=== PATIENT | female | born 1985 | race Caucasian/White ===

== ENCOUNTER 2016-08-28 19:01 | Emergency (ER) | payer OTHER ==
--- NOTE | 2016-08-28 21:32 | ED NURSING NOTES ---
Clinical Report - Nurses [place] [address] [place] [address] 08/28/2016 19:02 [id number] TRI[facility] Triage time 19:04. Acuity: LEVEL 3. Chief Complaint: DIZZINESS and WEAKNESS. Alert. DOUGIE COMA SCORE: [place] Coma Scale: 15- eyes open spontaneously (4); best verbal response- oriented x 4 (5); best motor response- obeys commands (6). --19:10 TonyaB, R.N. 19:04 08/28/16. BP: 111/84. HR: 75. RR: 16. O2 saturation: 100%. Temp: 98.7 F. Pain level now 4/10. --19:10 TonyaB, R.N. Weight: 52.6 kg. Height/Length: 63 inches. BMI: 20.5. --19:09 TonyaB, R.N. Medications Adderall. --19:06 TonyaB, R.N. Adderall Oral. --19:06 TonyaB, R.N. FLUoxetine HCl Oral. --19:06 TonyaB, R.N. Allergies No Known Drug Allergy. --19:06 TonyaB, R.N. History Arrived by EMS. Historian: patient. ( pt states she was having dizziness, and tingling of the hands, pt states she "passed" out.). This started just prior to arrival. She has had weakness. Treatment STOCK CHECKER: None. See EMS report. PAST MEDICAL HX: Immunizations: up-to-date. Last normal menstrual period- pt on depo. SOCIAL HX: Current every day smoker. Regular alcohol use. History of drug use: marijuana. No infectious disease exposure. SELF HARM ASSESSMENT: A self harm assessment was performed. The patient answered "no" to the question "Have you recently felt down, depressed, or hopeless?", "Have you noticed less interest or pleasure in doing things?", "Do you have thoughts of harming or killing yourself?", "Are you here because you tried to hurt yourself?", "Have you ever tried to hurt yourself before today?", "Have you recently had thoughts about harming or killing others?" and "Do you have any dangerous items in your possession?". FALL RISK ASSESSMENT: Fall risk assessment completed. No fall risk identified. NUTRITIONAL RISK ASSESSMENT: The nutritional risk assessment revealed no deficiencies. FUNCTIONAL ASSESSMENT: Functional assessment: no impairments noted. LEARNING NEEDS ASSESSMENT: The learning needs assessment revealed no barriers. SKIN INTEGRITY ASSESSMENT: Skin integrity risk assessment completed. No skin integrity risk identified. --19:10 Muriel Mckeon PROBLEMS: Anxiety Reaction. --19:07 Betsey Mckeon. ADDITIONAL SURGERIES: Cholecystectomy. --19: Betsey Mckeon. Interventions ID band on patient. --19:10 Muriel Mckeon PHYSICAL ASSESSMENT To room via stretcher. GENERAL / NEURO / PSYCH: Oriented X 4. Appears in no acute distress. Alert. Speech within normal limits. HEENT: No facial asymmetry noted. Pupils equal, round and reactive to light. RESPIRATORY: Breath sounds within normal limits. Respirations not labored. CVS: Normal sinus rhythm noted. Capillary refill less than 2 seconds. GI / : Abdomen soft and nontender. SKIN: Skin is warm. --19:10 Muriel Mckeon NURSING PROGRESS NOTES EKG time: (1954 PM). EKG was ordered, performed by a tech and shown to the ED physician. --19:57 Bessie Montelongo ( sandwich and juice given to pt). --20:04 Muriel Mckeon DISPOSITION / DISCHARGE Departure time: 21:40. Condition at departure: improved. No learning barriers present. Discharge instructions provided and reviewed with the patient. Patient verbalized understanding. Written instructions provided in [place]ijani. The patient was discharged by the physician. She was discharged home and accompanied by ethnology teacher. She left the Emergency Department ambulatory and via private vehicle. Music Typographer driving. FALL RISK ASSESSMENT: Fall risk assessment completed. No fall risk identified. --21:40 Muriel Mckeon 21:39 08/28/16. BP: 112/68. HR: 68. RR: 16. O2 saturation: 99%. Temp: 98.6 F. Pain level now 0/10. --21:40 Muriel Mckeon Locked/Released at 08/29/2016 3:01 by Alen Donaldson R.N.
--- NOTE | 2016-08-28 21:32 | ED ORDER SUMMARY ---
..... Patient: JUAREZ MAURICIO OrderSheet [facility] VisitID: [id number] [place] [address] 30y, F Registration Date/Time: 08/28/2016 ORDER SHEET Weight: 52.6 kg Allergies: No Known Drug Allergy GENERAL ORDERS: EKG - ER Stat (19:36 08/28/2016 TBowen R.N. per protocol) (19:36 TBowen R.N.) CBC w Diff Urgent (19:46 08/28/2016 SThom A.R.N.P.) (Ack 19:48 CHagerty ER Narcotics And/Or Vice Detective) (20:14 TBowen R.N.) CMP Urgent (19:46 08/28/2016 SThom A.R.N.P.) (Ack 19:48 CHagerty ER Narcotics And/Or Vice Detective) (20:14 TBowen R.N.) Urine Urgent (19:46 08/28/2016 SThom A.R.N.P.) (Ack 19:48 CHagerty ER Narcotics And/Or Vice Detective) (20:46 TBowen R.N.) UA-Culture if indicated Urgent (19:46 08/28/2016 SThom A.R.N.P.) (Ack 19:48 CHagerty ER Narcotics And/Or Vice Detective) (20:46 TBowen R.N.) MEDICATION ORDERS: IV FLUIDS: ORDER SHEET NOTES: [Electronically signed by Sunshine CabralesR.N.P. (22:29 08/28/2016)] [Electronically signed by Alen Donaldson R.N. (03:01 08/29/2016)] [Electronically locked/signed by Alen Donaldson R.N. (03:01 08/29/2016)]
--- NOTE | 2016-08-28 21:32 | ED NURSING NOTES ---
Clinical Report - Nurses [place] [address] [place] [address] 08/28/2016 19:02 [id number] TRI[facility] Triage time 19:04. Acuity: LEVEL 3. Chief Complaint: DIZZINESS and WEAKNESS. Alert. DOUGIE COMA SCORE: [place] Coma Scale: 15- eyes open spontaneously (4); best verbal response- oriented x 4 (5); best motor response- obeys commands (6). --19:10 TonyaB, R.N. 19:04 08/28/16. BP: 111/84. HR: 75. RR: 16. O2 saturation: 100%. Temp: 98.7 F. Pain level now 4/10. --19:10 TonyaB, R.N. Weight: 52.6 kg. Height/Length: 63 inches. BMI: 20.5. --19:09 TonyaB, R.N. Medications Adderall. --19:06 TonyaB, R.N. Adderall Oral. --19:06 TonyaB, R.N. FLUoxetine HCl Oral. --19:06 TonyaB, R.N. Allergies No Known Drug Allergy. --19:06 TonyaB, R.N. History Arrived by EMS. Historian: patient. ( pt states she was having dizziness, and tingling of the hands, pt states she "passed" out.). This started just prior to arrival. She has had weakness. Treatment INTERACTIVE ACCOUNT MANAGER: None. See EMS report. PAST MEDICAL HX: Immunizations: up-to-date. Last normal menstrual period- pt on depo. SOCIAL HX: Current every day smoker. Regular alcohol use. History of drug use: marijuana. No infectious disease exposure. SELF HARM ASSESSMENT: A self harm assessment was performed. The patient answered "no" to the question "Have you recently felt down, depressed, or hopeless?", "Have you noticed less interest or pleasure in doing things?", "Do you have thoughts of harming or killing yourself?", "Are you here because you tried to hurt yourself?", "Have you ever tried to hurt yourself before today?", "Have you recently had thoughts about harming or killing others?" and "Do you have any dangerous items in your possession?". FALL RISK ASSESSMENT: Fall risk assessment completed. No fall risk identified. NUTRITIONAL RISK ASSESSMENT: The nutritional risk assessment revealed no deficiencies. FUNCTIONAL ASSESSMENT: Functional assessment: no impairments noted. LEARNING NEEDS ASSESSMENT: The learning needs assessment revealed no barriers. SKIN INTEGRITY ASSESSMENT: Skin integrity risk assessment completed. No skin integrity risk identified. --19:10 Muriel Mckeon PROBLEMS: Anxiety Reaction. --19:07 Betsey Mckeon. ADDITIONAL SURGERIES: Cholecystectomy. --19: Betsey Mckeon. Interventions ID band on patient. --19:10 Muriel Mckeon PHYSICAL ASSESSMENT To room via stretcher. GENERAL / NEURO / PSYCH: Oriented X 4. Appears in no acute distress. Alert. Speech within normal limits. HEENT: No facial asymmetry noted. Pupils equal, round and reactive to light. RESPIRATORY: Breath sounds within normal limits. Respirations not labored. CVS: Normal sinus rhythm noted. Capillary refill less than 2 seconds. GI / : Abdomen soft and nontender. SKIN: Skin is warm. --19:10 Muriel Mckeon NURSING PROGRESS NOTES EKG time: (1954 PM). EKG was ordered, performed by a tech and shown to the ED physician. --19:57 Bessie Montelongo ( sandwich and juice given to pt). --20:04 Muriel Mckeon DISPOSITION / DISCHARGE Departure time: 21:40. Condition at departure: improved. No learning barriers present. Discharge instructions provided and reviewed with the patient. Patient verbalized understanding. Written instructions provided in [place]. The patient was discharged by the physician. She was discharged home and accompanied by interlacer. She left the Emergency Department ambulatory and via private vehicle. Core Mounter driving. FALL RISK ASSESSMENT: Fall risk assessment completed. No fall risk identified. --21:40 Muriel Mckeon 21:39 08/28/16. BP: 112/68. HR: 68. RR: 16. O2 saturation: 99%. Temp: 98.6 F. Pain level now 0/10. --21:40 Muriel Mckeon Locked/Released at 08/29/2016 3:01 by Alen Donaldson R.N.
--- NOTE | 2016-08-28 21:32 | ED CLINICAL REPORT ---
Clinical Report - Physicians/Mid Levels [facility] [address] [place] [address] 08/28/2016 19:02 Patient: JUAREZ MAURICIO Time Seen: 19:42. Arrived- By ambulance. Historian- patient and EMS personnel. HISTORY OF PRESENT ILLNESS Chief Complaint: DIZZINESS. Described as feeling light-headed and weak all over. This started just prior to arrival. No nausea or vomiting. Similar symptoms previously: None. Recent medical care: Not recently seen/assessed. REVIEW OF SYSTEMS No double vision. She has had weakness, and numbness. PAST HISTORY See nurses notes. ( Anxiety hx. Was out drinking last night. Spent the day in bed feeling "off". Episode occurred at restaurant). Surgeries: Cholecystectomy. ADDITIONAL NOTES The nursing notes have been reviewed. PHYSICAL EXAM Vital Signs: 08/28/2016 21:39 BP: 112/68. HR: 68. RR: 16. O2 saturation: 99%. Temp: 98.6 F. Have been reviewed and appear to be correct. Appearance: Alert. No acute distress. Eyes: Pupils equal, round and reactive to light. Extraocular movements normal. ENT: Normal ENT inspection. Moist mucous membranes. Neck: Normal inspection. Neck supple. No meningeal signs. CVS: Normal heart rate and rhythm. Respiratory: No respiratory distress. Back: Normal inspection. Skin: Skin warm and dry. Normal skin color. Normal skin turgor. Extremities: Extremities exhibit normal ROM. Neuro: Alert. Oriented X 3. Mood/affect normal. Speech normal. Cranial nerves normal (as tested). No cerebellar findings. No motor deficit. LABS, X-RAYS, AND EKG EKG: No acute process. Normal EKG. Normal sinus rhythm. Rate: 52. Bradycardia. Normal EKG. (rev w/ Dr Galvez, ERMD). Laboratory Tests: Laboratory tests have been ordered, with results reviewed and considered in the medical decision making process. UA-Culture if indicated: (ENRIQUE: 08/28/2016 20:40) ( MsgRcvd 08/28/2016 21:50) Final results Test Result Flag Units (Reference) URINE COLOR YELLOW URINE APPEARANCE CLEAR URINE GLUCOSE NEGATIVE (NEGATIVE) URINE BILIRUBIN NEGATIVE (NEGATIVE) URINE KETONE NEGATIVE (NEGATIVE) URINE SPECIFIC GRAVITY 1.015 (1.010-1.030) URINE PH 7.5 (5.0-8.0) URINE PROTEIN TRACE (NEGATIVE) URINE UROBILINOGEN 0.2 EU/dL (0.2-1.0) URINE NITRITE NEGATIVE (NEGATIVE) URINE BLOOD NEGATIVE (NEGATIVE) URINE LEUK ESTERASE NEGATIVE (NEGATIVE) URINE RBC NONE SEEN rbc/hpf (0-1) URINE WBC 1-3 wbc/hpf (0-1) URINE EPITHELIAL CELLS 0-1 EPI/hpf (0-5) URINE BACTERIA NONE SEEN (NONE SEEN) URINE COMMENT CULT NOT INDICATED TRACE MUCUSURINE CULTURES ARE SET-UP BASED ON THE FOLLOWING CRITERIA:POSITIVE NITRITEPOSITIVE LEUKOCYTE ESTERASEGREATER THAN 10 WHITE BLOOD CELLSMODERATE (2+) OR GREATER BACTERIA Urine: (ENRIQUE: 08/28/2016 20:40) ( [facility] 08/28/2016 21:32) Final results Test Result Flag Units (Reference) URINE NEGATIVE CBC w Diff: (ENRIQUE: 08/28/2016 20:10) ( [facility] 08/28/2016 20:45) Final results Test Result Flag Units (Reference) WHITE BLOOD COUNT 12.0 H K/uL (4.5-11.5) RED BLOOD COUNT 4.45 M/uL (4.00-5.20) HEMOGLOBIN 14.0 gm/dL (12.0-16.0) HEMATOCRIT 41.2 % (36.0-46.0) MEAN CELL VOLUME 93 fL (80-100) MEAN CORPUSCULAR HGB 31 pg (26-34) MEAN CORPUSCULAR HGB CONC 34 g/dL (31-37) RED CELL DISTRIBUTION WIDTH 12.8 % (11.6-14.8) PLATELET COUNT 259 K/uL (150-400) NEUTROPHIL % 73.4 % (50-75) LYMPH % 18.8 L % (25-40) MONO % 6.9 % (3-14) EOSINOPHIL % 0.4 % (0-4) BASOPHIL % 0.5 % (0-2) CMP: (ENRIQUE: 08/28/2016 20:10) ( MsgRcvd 08/28/2016 20:47) Final results Test Result Flag Units (Reference) GLUCOSE 93 mg/dL (70-110) BUN 10 mg/dL (7-18) CREATININE 0.7 mg/dL (0.6-1.3) Estimated GFR >60 mL/min Estimated GFR- >60 mL/min Note: Persistent reduction over 3 months in eGFR<60 mL/min/1.73 m2 defines CKD. Patients with eGFR values>=60 mL/min/1.73 m2 may also have CKD if evidence ofpersistent proteinuria. Additional information may be foundat www.kidney.org. SODIUM 140 mmol/L (136-145) POTASSIUM 3.5 mmol/L (3.5-5.1) CHLORIDE 103 mmol/L (98-107) CARBON DIOXIDE 28 mmol/L (21-32) CALCIUM 8.5 mg/dL (8.5-10.1) TOTAL PROTEIN 7.3 g/dL (6.4-8.2) ALBUMIN 4.1 g/dL (3.3-5.0) BILIRUBIN, TOTAL 0.3 mg/dL (0.0-1.0) ALKALINE PHOSPHATASE 53 U/L (46-116) AST (SGOT) 22 U/L (15-37) ALT (SGPT) 37 U/L (12-78) . PROGRESS AND PROCEDURES Course of Care: No evidence of infection. Neuro exam normal, VSS, minimal elev WBC more c/w (resolving) volue depletion Pt desires to go home Drank gatorade and took sandwich with further improvement. Patient is stable. The patient's symptoms are now gone. Physical exam findings are improved. Patient counseled in person regarding the patient's condition, test results, diagnosis and need for follow-up. Disposition: Discharged. Condition: stable. CLINICAL IMPRESSION Syncope. Mild volume depletion. INSTRUCTIONS Drink plenty of fluids. No alcohol today. (Will call if any action needed on urine.). Warnings: GENERAL WARNINGS: Return or contact your physician immediately if your condition worsens or changes unexpectedly, if not improving as expected, or if other problems arise. Follow-up: Follow up with your doctor as needed. Understanding of the discharge instructions verbalized by patient. (Electronically signed by Sunshine Cabrales A.R.N.P. 08/28/2016 22:29)
--- NOTE | 2016-08-28 21:32 | ED ORDER SUMMARY ---
..... Patient: JUAREZ MAURICIO OrderSheet [facility] VisitID: [id number] [place] [address] 30y, F Registration Date/Time: 08/28/2016 ORDER SHEET Weight: 52.6 kg Allergies: No Known Drug Allergy GENERAL ORDERS: EKG - ER Stat (19:36 08/28/2016 TBowen R.N. per protocol) (19:36 TBowen R.N.) CBC w Diff Urgent (19:46 08/28/2016 SThom A.R.N.P.) (Ack 19:48 CHagerty ER Paper Sealer) (20:14 TBowen R.N.) CMP Urgent (19:46 08/28/2016 SThom A.R.N.P.) (Ack 19:48 CHagerty ER Paper Sealer) (20:14 TBowen R.N.) Urine Urgent (19:46 08/28/2016 SThom A.R.N.P.) (Ack 19:48 CHagerty ER Paper Sealer) (20:46 TBowen R.N.) UA-Culture if indicated Urgent (19:46 08/28/2016 SThom A.R.N.P.) (Ack 19:48 CHagerty ER Paper Sealer) (20:46 TBowen R.N.) MEDICATION ORDERS: IV FLUIDS: ORDER SHEET NOTES: [Electronically signed by Sunshine CabralesR.N.P. (22:29 08/28/2016)] [Electronically signed by Alen Donaldson R.N. (03:01 08/29/2016)] [Electronically locked/signed by Alen Donaldson R.N. (03:01 08/29/2016)]
--- NOTE | 2016-08-29 03:02 | ED MED RECONCILIATION SUMMARY ---
Patient: JUAREZ MAURICIO Medication Reconciliation Report [facility] VisitID: [id number] [address] [place] [address] 30y, F Registration Date/Time: 08/28/2016 Weight: 52.6 kg Height/Length: 63 in. BMI: 20.5 ALLERGIES: No Known Drug Allergy The patient's Home Medications are listed below: THE FOLLOWING MEDICATIONS NEED TO BE RECONCILED: Adderall Adderall Oral FLUoxetine HCl Oral The source(s) of the original Home Medication information: Not obtained. The following Medications were given to the patient in the Emergency Department: None. The following Medications were prescribed to the patient: None.
--- NOTE | 2016-08-29 03:02 | ED MED RECONCILIATION SUMMARY ---
Patient: JUAREZ MAURICIO Medication Reconciliation Report [facility] VisitID: [id number] [address] [place] [address] 30y, F Registration Date/Time: 08/28/2016 Weight: 52.6 kg Height/Length: 63 in. BMI: 20.5 ALLERGIES: No Known Drug Allergy The patient's Home Medications are listed below: THE FOLLOWING MEDICATIONS NEED TO BE RECONCILED: Adderall Adderall Oral FLUoxetine HCl Oral The source(s) of the original Home Medication information: Not obtained. The following Medications were given to the patient in the Emergency Department: None. The following Medications were prescribed to the patient: None.
--- NOTE | 2016-08-29 03:02 | ED MAR SUMMARY ---
..... Medication Administration Record [facility] [address] [place], [place] [id number] Patient: JUAREZ MAURICIO Visit ID: [id number] 30y, F Weight: 52.6 kg Height/Length: 63 in BMI: 20.5 ALLERGIES: No Known Drug Allergy
--- NOTE | 2016-08-29 03:02 | ED MAR SUMMARY ---
..... Medication Administration Record [facility] [address] [place], [place] [id number] Patient: JUAREZ MAURICIO Visit ID: [id number] 30y, F Weight: 52.6 kg Height/Length: 63 in BMI: 20.5 ALLERGIES: No Known Drug Allergy
--- NOTE | 2016-08-29 03:02 | ED DISCHARGE INSTRUCTIONS ---
Patient: JUAREZ MAURICIO General Instructions [facility] VisitID: [id number] [place] [address] 30y, F Registration Date/Time: 08/28/2016 Syncope. Mild volume depletion. INSTRUCTIONS Drink plenty of fluids. No alcohol today. (Will call if any action needed on urine.). Warnings: GENERAL WARNINGS: Return or contact your physician immediately if your condition worsens or changes unexpectedly, if not improving as expected, or if other problems arise. Follow-up: Follow up with your doctor as needed. Understanding of the discharge instructions verbalized by patient. ADDITIONAL INFORMATION Fainting:Uncertain Cause Fainting (syncope) is a temporary loss of consciousness ("passing out"). It occurs when blood flow to the brain is reduced. Near-fainting ("near-syncope") is very similar to fainting, but you do not fully "pass out". The common minor causes of fainting include: sudden fear, pain, nausea, emotional stress and overexertion. Suddenly standing up after sitting or lying for a long time can also cause fainting. The more serious causes for fainting are due to either a very slow or very fast or very slow heart beat ("arrhythmia"), other types of heart disease, dehydration, blood loss, seizure, stroke or ruptured blood vessel in the brain. Taking too much high blood pressure medicine can also cause low blood pressure and fainting. The exact cause of your episode is not certain. However, the tests today did not show any of the serious causes of fainting. Sometimes further testing is needed to find out if a serious problem exists. Therefore, it is important that you follow-up with your doctor as advised. Home Care: 1) Rest today. You may resume your normal activities when you are feeling back to normal. It is best to remain with someone who can check on you for the next 24 hours to watch for another episode of fainting. 2) If you become light-headed or dizzy, lie down immediately or sit with your head between your knees. 3) Because we do not know the exact cause of your near fainting spell, it is possible for another spell to occur without warning. Therefore, do not drive a car or operate dangerous equipment, do not take a bath alone (use a shower instead) and do not swim alone until your doctor says that you are no longer in danger of having another fainting spell. Follow Up with your doctor as advised. Get Prompt Medical Attention if any of the following occur: -- Another fainting spell occurs, which is not explained by the common causes listed above -- Chest, arm, neck, jaw, back or abdominal pain -- Shortness of breath -- Severe headache or seizure -- Blood in vomit, stools (black or red color) -- Unexpected vaginal bleeding -- Palpitations (very rapid or very slow or irregular heart beat) -- Signs of stroke: Weakness of an arm or leg or one side of the face Difficulty with speech or vision Extreme drowsiness, confusion, dizziness or fainting Dehydration (Adult) Dehydration occurs when your body loses too much fluid. This may be the result of vomiting a lot or from diarrhea,sweating a lot, or a high fever. It may also happen if you dont drink enough fluid when youre sick. Misuse of diuretics (water pills) can also be a cause. Symptoms include thirst and feeling dizzy, weak, fatigued, or very drowsy. The diet described below is usually enough to treat most cases. Sometimes you may needmedicine. Home Care Follow these guidelines for home care: Drink at least 12 8-ounce glasses of fluid every day to overcome the dehydration. Fluid may include water; orange juice; lemonade; apple, grape, and cranberry juice; clear fruit drinks; electrolyte replacement and sports drinks; and teas and coffee without caffeine. If you have been diagnosed with a kidney disease, ask your doctor how much and what types of fluids you should drink to prevent dehydration. If you have kidney disease, drinking too much fluid can cause it build up in the your body and be dangerous to your health. If you have fever, muscle aching, or headache from a viral syndrome, you may useacetaminophen or ibuprofen, unless another medicine was prescribed for this.If you have chronic liver or kidney disease or ever had a stomach ulcer or GI bleeding, talk with your doctor before using these medicines. Don't take aspirin if you are younger than 18 and are ill with a fever.Aspirin raises the chance forsevere liver injury. Follow-up care Follow up with your health care provider if you don't get better in the next 24 to 48 hours. When to seek medical care Get prompt medical attention if any of theseoccur: Continued vomiting (cant keep liquids down) Frequent diarrhea (more than 5 times a day); blood (red or black color) or mucus in diarrhea Blood in vomit or stool Swollen abdomen or increasing abdominal pain Weakness, dizziness, or fainting Unusually drowsy or confused Reduced urine output or extreme thirst Fever of 100.4 F (38 C) oral or higher that does not get better with fever medication You have been given the following additional information: Syncope, Unk Cause Dehydration (Adult) (Electronically signed by Sunshine Cabrales A.R.N.P. 08/28/2016 22:29)
== END 2016-08-28 21:40 | disposition home or self-care (01) ==
LOC: ED SRH 19:01
DX: R55 Syncope and collapse (principal); E86.9 Volume depletion, unspecified
CPT/HCPCS: 90004; 90100; 93070; 95059